=== PATIENT | male | born 1960 | race Caucasian/White ===

== ENCOUNTER 2016-11-04 12:35 | Emergency (ER) | payer MEDICAID ==
[~2016-11-04] VITALS: Ht 160 cm; Wt 90.7 kg
--- NOTE | 2016-11-04 12:40 | NUR ---
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 Patient remains aao3, apears in andrés cute distress, respiration even and unlabored.Sating well on room air,. No weakness, - facial droop. SKin is warm to touch and no diaphoretic. Afebrile. Gowned and placed on tele monitor. VSs. medication technician at bs for eg
--- NOTE | 2016-11-04 12:45 | NUR ---
Iv accessed to rac 18 and right wrist 20. blood sample sent to lab
[2016-11-04] MEDS ORDERED: ASPIRIN 325 MG TABLET ONE ×2 (12:50)
[2016-11-04] MEDS ORDERED: NITROGLYCERIN 0.4 MG/TAB BOTTLE ONE (12:50)
--- NOTE | 2016-11-04 12:52 | NUR ---
CODE STEMI INITIATED
[2016-11-04] MEDS ORDERED: MORPHINE SULFATE INJ 4 MG/ML DISP.SYRIN ONE (12:53)
[2016-11-04] MEDS ORDERED: ONDANSETRON HCL/PF 4 MG/2 ML VIAL ONE (12:53)
--- NOTE | 2016-11-04 12:55 | NUR ---
Medications given as odered
--- NOTE | 2016-11-04 12:55 | NUR ---
CALLED [facility] SPOKE WITH MICHAEL, FAXED HIM FACESHEET AND 12 LEAD EKG
[2016-11-04 12:58] LABS: BASOPHILS % (AUTO) 0.4 % (0.0-2.0); EOSINOPHILS # (AUTO) 0.2 /CMM (0.0-0.7); EOSINOPHILS % (AUTO) 1.3 % (0.0-6.0); HEMATOCRIT 47 % (39-51); MEAN CORPUSCULAR HEMOGLOBIN 31 PG (26.0-33.0); MEAN CORPUSCULAR HGB CONC 34 g/dl (31.0-36.0); MEAN CORPUSCULAR VOLUME 90 fL (80-96); MONOCYTES # (AUTO) 0.9 /CMM (0.1-1.30); MONOCYTES % (AUTO) 6.9 % (2.0-12.0); NEUTROPHILS # (AUTO) 8.3 /CMM (1.8-8.9); NEUTROPHILS % (AUTO) 67.4 % (43.0-81.0); PLATELET COUNT (AUTO) 262 /CMM (150-450); RDW COEFFICIENT OF VARIATION 12.4 (11.5-15.0); RED BLOOD CELL COUNT(AUTO) 5.26 MIL/uL (4.5-6.0); WHITE BLOOD COUNT (AUTO) 12.4 K/uL (4.3-11.0)
[2016-11-04] MEDS ORDERED: NITROGLYCERIN PACKET 1 GM PACKET TD ONE (13:00)
[2016-11-04] MEDS ORDERED: MORPHINE SULFATE INJ 2 MG/ML DISP.SYRIN IV ONE (13:00)
[2016-11-04] MEDS ORDERED: ONDANSETRON HCL/PF 4 MG/2 ML VIAL IVP ONE (13:00)
[2016-11-04] MEDS ORDERED: ASPIRIN 81 MG TAB.CHEW PO ONE (13:00)
[2016-11-04 13:09] LABS: CALCIUM, SERUM 8.6 mg/dL (8.5-10.1); CREATININE 0.8 mg/dL (0.6-1.3); POTASSIUM 4.2 mmol/L (3.5-5.1)
[2016-11-04 13:12] LABS: INR 0.9 (0.87-1.13); PROTHROMBIN TIME 9.4 SECS (9.5-12.7)
--- NOTE | 2016-11-04 13:12 | NUR ---
DR PALMER ON THE PHONE WITH [facility].
--- NOTE | 2016-11-04 13:16 | NUR ---
patient on bed at this time. awake, vss
[2016-11-04 13:17] LABS: TROPONIN I 0.078 ng/mL (0.00-0.056)
[2016-11-04] MEDS ORDERED: NITROGLYCERIN 0.4 MG/TAB BOTTLE SL STA (13:18)
[2016-11-04] MEDS ORDERED: HEPARIN SODIUM, PORCINE 5000 UNITS/1 ML VIAL ONE (13:21)
[2016-11-04 13:28] VITALS: BP 124/77
[2016-11-04] MEDS ORDERED: HEPARIN SODIUM, PORCINE 5000 UNITS/1 ML VIAL IV ONE (13:30)
--- NOTE | 2016-11-04 14:00 | NUR ---
Patient was picked up by [facility] at this time. Patient's family aware
== END 2016-11-04 14:17 ==
LOC: ER 12:37
DX: I21.3 ST elevation (STEMI) myocardial infarction of unspecified site (principal); F17.200 Nicotine dependence, unspecified, uncomplicated
CPT/HCPCS: 36415; 71010; 80048; 84484; 85025; 85730; 93005 ×3; 96374; 96375; 99291; A4606; J1644; J2270; J2405; Z7610